=== PATIENT | female | born 1985 | race Caucasian/White ===

== ENCOUNTER 2019-01-06 18:00 | Emergency (ER) | payer BC ==
[2019-01-06] MEDS ORDERED: NORMAL SALINE 1000 ML 1,000 ML IV ONE (18:39)
[2019-01-06] MEDS ORDERED: MECLIZINE HCL 25 MG TABLET PO ONE (18:39)
--- NOTE | 2019-01-06 18:43 | ER Document Report ---
ED Medical Screen (RME) - General Chief Complaint: Nausea/Vomiting Stated Complaint: VOMITING Time Seen by Provider: 01/06/19 18:30 TRAVEL OUTSIDE OF THE [place] IN LAST 30 DAYS: No - HPI Notes: 01/06/19 18:40 Patient is a 33-year-old female with no significant past medical history who presents complaining of nausea, vomiting, dizziness intermittently since Sunday morning. Patient states that she was at an urgent care initially and they gave her a nasal spray. Patient states that she had recurrence of the dizziness, nausea, and vomiting thereafter. She went again today and they gave her a shot of nausea medicine and sent her to the emergency department for evaluation. She otherwise has been feeling well, but does have a decreased p.o. intake. She is urinating normally and having normal bowel movements. She is currently on her menstrual cycle. Denies drug use or alcohol intake. Denies CHU, fever, neck pain, URI, CP, SOB, Abd pain, or rash. I have treated and performed a rapid initial assessment of this patient. A comprehensive ED assessment and evaluation of the patient, analysis of test results and completion of medical decision making process will be conducted by additional ED providers. PHYSICAL EXAMINATION: GENERAL: Well-appearing, well-nourished and in no acute distress. A&Ox4. Answers questions appropriately. Eyes: PERRLA. EOMI b/l. LUNGS: Breath sounds clear to auscultation bilaterally and equal. No wheezes rales or rhonchi. HEART: Regular rate and rhythm without murmurs, rubs, gallops. ABDOMEN: Soft, nondistended abdomen. No guarding, no rebound. Normal bowel sounds present. No CVA tenderness bilaterally. Grossly nontender (cannot elicit thorough abd exam w/o table, however). Extremities: No cyanosis, clubbing, or edema b/l. NEUROLOGICAL: Normal speech, normal gait. Cranial nerves grossly intact. NIH 0. PSYCH: Normal mood, normal affect. - Related Data Allergies/Adverse Reactions: No Known Allergies Allergy (Unverified 01/06/19 18:01) Physical Exam - Vital signs Vitals: Pulse Resp BP Pulse Ox 57 L 20 124/70 100 01/06/19 18:08 01/06/19 18:08 01/06/19 18:08 01/06/19 18:08 Course - Vital Signs Vital signs: Temp Pulse Resp BP Pulse Ox 57 L 20 124/70 100 01/06/19 18:08 01/06/19 18:08 01/06/19 18:08 01/06/19 18:08
[2019-01-06 19:13] LABS: APPEARANCE,URINE SLIGHTLY-CLOUDY; BILIRUBIN,URINE NEGATIVE (NEGATIVE); COLOR,URINE YELLOW; GLUCOSE, URINE NEGATIVE (NEGATIVE); KETONES,URINE TRACE mg/dL (NEGATIVE); LEUKOCYTE ESTERASE,URINE NEGATIVE (NEGATIVE); NITRITE,URINE NEGATIVE (NEGATIVE); PROTEIN,URINE NEGATIVE (NEGATIVE); URINE SPECIFIC GRAVITY 1.028; UROBILINOGEN,URINE NEGATIVE mg/dL (<2.0)
[2019-01-06 19:20] LABS: ABSOLUTE LYMPHOCYTES (AUTO) 1.3 10^3/uL (0.5-4.7); ABSOLUTE MONOCYTES (AUTO) 0.3 10^3/uL (0.1-1.4); ABSOLUTE NEUT (AUTO) 7.5 10^3/uL (1.7-8.2); BASOPHILS % (AUTO) 0.3 % (0-2); EOSINOPHILS % (AUTO) 0.2 % (0-6); HEMATOCRIT 42.2 % (36.0-47.0); HEMOGLOBIN 13.9 g/dL (12.0-15.5); LYMPHOCYTES % (AUTO) 14.5 % (13-45); MEAN CORPUSCULAR HEMOGLOBIN 27.2 pg (27.0-33.4); MEAN CORPUSCULAR HGB CONC 32.9 g/dL (32.0-36.0); MEAN CORPUSCULAR VOLUME 83 fl (80-97); MONOCYTES % (AUTO) 3.4 % (3-13); PLATELET COUNT 279 10^3/uL (150-450); RED CELL DISTRIBUTION WIDTH 13.6 % (11.5-14.0); SEGMENTED NEUTROPHILS % (AUTO) 81.6 % (42-78); TOTAL CELLS COUNTED % (AUTO) 100 %; WHITE BLOOD COUNT 9.2 10^3/uL (4.0-10.5)
--- NOTE | 2019-01-06 19:35 | ER Document Report ---
ED Dizziness/Weakness - General Chief Complaint: Nausea/Vomiting Stated Complaint: VOMITING Time Seen by Provider: 01/06/19 18:30 Mode of Arrival: Ambulatory Information source: Patient TRAVEL OUTSIDE OF THE [place] IN LAST 30 DAYS: No - HPI Patient complains to provider of: Dizziness Notes: Patient is here with complaints of dizziness. The patient states that she developed some spinning sensation/dizziness on Sunday. Anytime she moved her head the wrong way, she felt like her breathing was spinning and she had nausea vomiting. She was fine all day yesterday and then today she has had intermittent episodes again of feeling like everything was spinning with nausea vomiting. She was seen at urgent care and was sent here for evaluation. She denies any head injury. No blood thinners. No fever. No blurred or loss vis ion. No unilateral numbness, tingling, weakness. No chest pain or shortness of breath. No abdominal pain. No rash. She denies any neck, back pain. Symptoms are intermittent, seem to be associated with some head movements, better with rest. She also reports having some left ear pain. No syncope. - Related Data Allergies/Adverse Reactions: No Known Allergies Allergy (Unverified 01/06/19 18:01) Past Medical History - Social History Smoking Status: Unknown if Ever Smoked Chew tobacco use (# tins/day): No Frequency of alcohol use: None Drug Abuse: None Family History: Reviewed & Not Pertinent Patient has suicidal ideation: No Patient has homicidal ideation: No Renal/ Medical History: Denies: Hx Peritoneal Dialysis Past Surgical History: Reports: Hx Oral Surgery Review of Systems - Review of Systems -: Yes All other systems reviewed and negative Physical Exam - Vital signs Vitals: Pulse Resp BP Pulse Ox 57 L 20 124/70 100 01/06/19 18:08 01/06/19 18:08 01/06/19 18:08 01/06/19 18:08 - Notes Notes: GENERAL: alert, cooperative, nontoxic, no distress. HEAD: normocephalic, atraumatic EYES: conjunctiva pink without discharge, no external redness or swelling. Pupils are equal, round, reactive to light. EARS: no external swelling, no external redness. Ear canals clear with no swelling or redness. Bilateral TMs with out erythema or perforation. Both with clear effusion behind the TM. NOSE: atraumatic, no external swelling MOUTH/THROAT: mucous membranes moist and pink, posterior pharynx without erythema, swelling, exudate. No trismus or drooling. NECK: soft, supple, full range of motion, no meningismus. CHEST: no distress, lungs clear and equal throughout. No wheezing, rales, rhonchi. CARDIAC: regular rate and rhythm, no murmur, normal capillary refill, normal pu lses. No peripheral edema noted. BACK: full range of motion, no CVA tenderness. EXTREMITIES: full range of motion of all extremities. No redness, no swelling. NEURO: alert and oriented x 3, cranial nerves II through XII are grossly intact. Upper and lower extremities are equal throughout. Normal sensation. No focal deficits, full range of motion of all extremities. normal finger to nose. Norm al [id number]. PYSCH: appropriate mood, affect. Patient is cooperative. SKIN: pink, warm, dry, no rash. Course - Re-evaluation Re-evalutation: 01/06/19 20:05 Patient is nontoxic-appearing with stable vitals. She is here with complaints of some intermittent spinning/dizziness with nausea vomiting. This started 2 days ago was gone yesterday and then restarted again today. It seems to be worse with head movements. She is having some left ear pain prior to this starting. On exam she is noted to have some effusions behind both TMs. There is no signs of ear infection. She has a completely nonfocal neuro exam with normal cerebellar exam. No chest pain or shortness of breath, no syncope. She has no PE risk factors. EKG is negative. Labs are unremarkable for any significant abnormalities. Urinalysis shows no sign of infection with some ketones and an elevated specific gravity consistent with some mild dehydration. Patient was given IV fluids, Antivert with improvement of her symptoms. At this point I believe the patient's most likely suffering from benign positional vertigo. She will be discharged home with decongestants and Antivert with instructions to follow-up with her primary care doctor or ENT if not better in 3 to 5 days, follow-up sooner/return the emergency department for any worsening symptoms, high fever, severe headache, numbness, tingling, weakness, persistent vomiting, or for any further concerns. The patient's emergency department workup and current diagnosis were explained to the patient and or family. Follow-up instructions were provided. Medications if prescribed were discussed. Instructions for when to return to the emergency department including specific worrisome symptoms were discussed with the patient and/or family. - Vital Signs Vital signs: Temp Pulse Resp BP Pulse Ox 97.6 F 57 L 20 124/70 100 01/06/19 18:41 01/06/19 18:08 01/06/19 18:08 01/06/19 18:08 01/06/19 18:08 - Laboratory Result Diagrams: 01/06/19 18:45 01/06/19 18:45 Laboratory results interpreted by me: 01/06/19 01/06/19 01/06/19 18:45 18:45 18:45 Seg Neutrophils % 81.6 H Glucose 138 H Urine Ketones TRACE H Urine Blood SMALL H - EKG Interpretation by [facility] EKG shows normal: Sinus rhythm, [place], Intervals, QRS Complexes, ST-T Waves Rate: Normal Discharge - Discharge Clinical Impression: BPV (benign positional vertigo) Qualifiers: Laterality: unspecified laterality Qualified Code(s): H81.10 - Benign paroxysmal vertigo, unspecified ear Middle ear effusion Qualifiers: Laterality: bilateral Qualified Code(s): H65.93 - Unspecified nonsuppurative otitis media, bilateral Condition: Stable Disposition: HOME, SELF-CARE Instructions: Vertigo ([facility]) Additional Instructions: Take medication as prescribed. Drink plenty fluids. Follow-up with ENT or your doctor at the next available appointment for recheck. Follow-up sooner for worsening pain, fever numbness, tingling, weakness, chest pain, passing out, persistent vomiting, or for any further concerns. Prescriptions: Loratadine/Pseudoephedrine Sul [Claritin-D 12 Hour Tablet] 1 each PO BID PRN #14 tab.sr.12h PRN Reason: Meclizine HCl [Antivert 25 mg Tablet] 25 mg PO TID PRN #21 tablet PRN Reason: Forms: Smoking Cessation Education Referrals: [facility] - [facility] [Provider Group] - Follow up as needed
[2019-01-06 19:46] LABS: ALANINE AMINOTRANSFERASE 18 U/L (9-52); ALBUMIN 4.5 g/dL (3.5-5.0); ALKALINE PHOSPHATASE 55 U/L (38-126); ANION GAP 12 (5-19); ASPARTATE AMINO TRANSFERASE 15 U/L (14-36); BILIRUBIN,DIRECT 0.2 mg/dL (0.0-0.4); BILIRUBIN,TOTAL 1.2 mg/dL (0.2-1.3); BLOOD UREA NITROGEN 13 mg/dL (7-20); CALCIUM 9.8 mg/dL (8.4-10.2); CARBON DIOXIDE 27 mmol/L (22-30); CHLORIDE 103 mmol/L (98-107); GLUCOSE 138 mg/dL (75-110); LIPASE 80.6 U/L (23-300); POTASSIUM 4.2 mmol/L (3.6-5.0); SODIUM 142.2 mmol/L (137-145); TOTAL PROTEIN 7.7 g/dL (6.3-8.2)
[2019-01-06 21:12] VITALS: BP 139/84
--- NOTE | 2019-01-07 07:38 | EKG REPORT ---
SEVERITY:- NORMAL ECG - SINUS RHYTHM : Confirmed by: Holley Young MD 07-Jan-2019 07:37:37
== END 2019-01-06 21:28 | disposition home or self-care (01) ==
LOC: ER 18:00
DX: H81.10 Benign paroxysmal vertigo, unspecified ear (principal); H65.93 Unspecified nonsuppurative otitis media, bilateral; R42 Dizziness and giddiness; R11.2 Nausea with vomiting, unspecified; H92.02 Otalgia, left ear
CPT/HCPCS: 93005; 96360; 36415; 83690; 83735; 85025; 81025; 80053; 81001; 93010; J7030